=== PATIENT | female | born 1985 | race Caucasian/White ===

== ENCOUNTER 2017-05-12 23:49 | Outpatient (CLI) | payer MEDICAID, OTHER ==
[~2017-05-12] VITALS: Ht 149.9 cm; Wt 80.4 kg
[~2017-05-12 23:49] MED LIST: CALC-649; FERR27TA; PNV1TABL12
[2017-05-13 00:29] VITALS: Ht 149.9 cm; Wt 80.4 kg
--- NOTE | 2017-05-13 02:19 | RADRPT ---
PROCEDURE: ULTRASOUND BIOPHYSICAL PROFILE CLINICAL INDICATION: 31-year-old female in labor for viability. TECHNIQUE: Multiple sonographic images were obtained in order to perform a biophysical profile The images were reviewed on a PACS workstation. COMPARISON: None. FINDINGS: The cervix appears closed with a length of 4.8 cm. There is a single viable intrauterine gestation. There is a vertex presentation. Cardiac activity is present at 159 beats per minute. The placenta is fundal. The results of the biophysical profile are as follows: breathing movement = 2/2 Gross body movement = 2/2 tone = 2/2 Qualitative amniotic fluid volume = 2/2 Amniotic fluid index equals 10.4 cm. This yields a biophysical profile score of 8/8. IMPRESSION: Biophysical profile score is 8/8. .Damon Pagan MD, Date Time Electronically viewed and signed by .Damon Pagan MD, MD on 05/13/2017 02:18 .M/
--- NOTE | 2017-05-13 02:23 | RADRPT ---
PROCEDURE: ULTRASOUND OBSTETRICAL CLINICAL INDICATION: 31-year-old female in labor for size and date determination. TECHNIQUE: Multiple sonographic images of the pelvis were obtained. The images were reviewed on a PACS workstation. COMPARISON: Ultrasound biophysical profile obtained concurrently. FINDINGS: There is a single viable intrauterine gestation. Cardiac activity is present with 159 beats per min mart. There is a vertex presentation. Measurements were made in order to determine age. The res ults are as follows: BPD = 7.72 cm, HC = 29.24 cm, AC = 28.62 cm, FL = 6.37 cm. This yields and estimated gestational ag e of approximately 32 weeks 1 day. The estimated date of delivery is July 07, 2017. The EFW = 199 4 +/- 299 g (4 lb 6 oz). The GP is 52%. The placenta is fundal. There is no evidence for an abruption or placenta previa. IMPRESSION: L viable intrauterine gestation of approximately 32 weeks 1 day with vertex presentation. The estim ated date of delivery is July 07, 2017. 2. The estimated weight is 1994 +/- 299 g (4 lb 6 oz). The GP is 52%. .Damon Paagn MD, Date Time Electronically viewed and signed by .Damon Pagan MD, MD on 05/13/2017 02:22 .M/
--- NOTE | 2017-05-13 02:46 | PN ---
Triage Information Date/Time Weeks of Gestation 32+ : 6 Para: 5 Hypertention: none Results/Medications Results 24 hrs Laboratory Tests Test 05/13/17 00:36 Fibronectin NEGATIVE Assessment/Plan Ultrasound reviewed No sign of labor +FM No VB No LOF NO ctxs --->patient is discharged with precautions --->patient's questions answered ALONZO BARR M.D. May 13, 2017 02:46
--- NOTE | 2017-05-13 03:14 | TRIAGE ---
OB Triage Datetime Report Generated by CPN: 05/13/2017 03:14 Datetime: 05/13/2017 03:00 Stage of : OB Triage Datetime: 05/13/2017 02:30 Labor Evaluation Frequency: NONE Monitor Mode: External Duration (sec)2399: NONE Pattern: Normal: <= 5 Contractions in 10 Minutes Heart Rate FHR Baseline Rate: 145 Monitor Mode: External US FHR Baseline Changes: No Baseline Change Variability: Moderate 6-25 bpm Accelerations: 10X10 Datetime: 05/13/2017 01:30 Labor Evaluation Frequency: NONE Monitor Mode: External Duration (sec)2399: NONE Pattern: Normal: <= 5 Contractions in 10 Minutes Heart Rate FHR Baseline Rate: 145 Monitor Mode: External US FHR Baseline Changes: No Baseline Change Variability: Moderate 6-25 bpm Accelerations: 15X15 Datetime: 05/13/2017 00:53 Monitor Mode: Palpation Resting Tone [place]: Relaxed Datetime: 05/13/2017 00:36 Vaginal Exam Membrane Status: Intact Datetime: 05/13/2017 00:30 Labor Evaluation Frequency: NONE Monitor Mode: External Duration (sec)2399: NONE Pattern: Normal: <= 5 Contractions in 10 Minutes Heart Rate FHR Baseline Rate: 155 Monitor Mode: External US FHR Baseline Changes: No Baseline Change Variability: Moderate 6-25 bpm Accelerations: 15X15 Decelerations: None Datetime: 05/13/2017 00:10 Assessment Type: Triage Maternal Assessment Level of Consciousness: Fully Conscious Headache: Denies Blurred Vision: No Respiratory Effort: Unlabored; Regular Rhythm; Equal Expansion Nausea/Vomiting: Denies RUQ Epigastric Pain: Denies Facial Edema: None Fall Risk Assessment History of Falling: (0) No Secondary Diagnosis: (0) No Ambulatory Aid: (0) Bedrest/Nurse Assist IV Therapy: (0) No Gait: (0) Normal/Bedrest/Immobile Mental Status: (0) Oriented to Own Ability Fall Score: 0 Fall Risk Score Definition: No Risk: No action required Datetime: 05/13/2017 00:03 Temperature Route: Oral Datetime: 05/13/2017 00:01 Monitor Mode: Palpation Resting Tone [place]: Relaxed Contraction Comments: pt. states she denies having 'pain' or 'contractions' since she appeared to hospital. pt. is homeless, lives in care home. pt. states she has anxiety, pt. states she believes she over exerted herself and that she 'strained' herself, and that is where her pain came from Datetime: 05/12/2017 23:53 Time of Arrival: 05/12/2017 23:42 EGA: 32.0 Arrived By: Ambulance Arrived From: Home Chief Complaint: UC'S, SOB Movement: Present Contractions: Occasional Rupture of Membranes: Denies Vaginal Bleeding: None Vaginal Discharge: Denies Recent Sexual Intercouse: Yes Abdominal Trauma: Not Applicable Patient Complaints: Contractions Time Provider Notified: 05/13/2017 00:26 Provider Notified: CORTNEY Initial Plan: EFM, CALL OB Datetime: 05/12/2017 23:42 Stage of : OB Triage
== END 2017-05-13 02:53 | disposition home or self-care (01) ==
LOC: OBT 23:49 → L-D 23:50 → OBT 05-13 02:53
PROVIDERS: ATTEND Obstetrics & Gynecology
DX: O26.893 Other specified pregnancy related conditions, third trimester (principal); Z3A.32 32 weeks gestation of pregnancy
CPT/HCPCS: 76815; 76817; 76818; 82731; Z7500; G0463

== ENCOUNTER 2017-05-15 20:24 | Outpatient (CLI) | payer OTHER ==
[~2017-05-15] VITALS: Ht 149.9 cm; Wt 80.5 kg
[~2017-05-15 20:24] MED LIST changes: -CALC-649
[2017-05-15 21:19] VITALS: BP 128/82; PULSE 99; RESP 18; Ht 149.9 cm; Wt 80.5 kg
--- NOTE | 2017-05-15 21:25 | RADRPT ---
PROCEDURE: OB ultrasound for biophysical profile CLINICAL INDICATION: Biophysical profile. . Hypertension TECHNIQUE: Multiple sonographic images of the pelvis were obtained. Transabdominal views are obta ined. COMPARISON: 05/13/2017 FINDINGS: Single intrauterine gestation. Presentation: Cephalic. Placenta: Fundal No evidence of placental abruption. No evidence of placenta previa. breathing movement = 2/2 tone = 2/2 motion = 2/2 SILVINO = 2/2 SILVINO = 11.5 cm heart rate: 165 beats per minute IMPRESSION: Single intrauterine gestation. Biophysical profile 07/09 RPTAT: AADD .Alejandro Shrestha MD, MD Date Time Electronically viewed and signed by .Alejandro Shrestha MD, on 05/15/2017 21:25 .B/
[2017-05-15 21:33] LABS: ADD SCAN DIFF NO
[2017-05-15 21:35] LABS: BASOPHILS % 0.3 % (0.0-2.0); EOSINOPHILS # 0.1 10^3/ul (0.0-0.5); EOSINOPHILS % 0.8 % (0.0-7.0); HEMATOCRIT 35.6 % (37.0-47.0); HEMOGLOBIN 11.5 g/dl (12.0-16.0); LYMPHOCYTES % 30.7 % (15.0-51.0); MEAN CORPUSCULAR HGB CONC 32.3 g/dl (32.0-37.0); MEAN CORPUSCULAR VOLUME 86.6 fl (82.0-101.0); MEAN PLATELET VOLUME 10.3 fl (7.4-10.4); MONOCYTE # 0.6 10^3/ul (0.3-0.9); MONOCYTES % 6.7 % (0.0-11.0); NEUTROPHIL # 5.9 10^3/ul (1.6-7.5); NEUTROPHILS % 61.2 % (39.0-77.0); PLATELET COUNT 248 10^3/UL (140-415); RED BLOOD COUNT 4.11 10^6/ul (4.20-5.40); WHITE BLOOD COUNT 9.6 10^3/ul (4.8-10.8)
[2017-05-15 21:44] LABS: ADD UMIC YES; URINE BILIRUBIN (Dip) NEGATIVE (NEGATIVE); URINE BLOOD (Dip) NEGATIVE (NEGATIVE); URINE COLOR LT. YELLOW (YELLOW); URINE GLUCOSE (Dip) NEGATIVE (NEGATIVE); URINE KETONES (Dip) NEGATIVE (NEGATIVE); URINE LEUKOCYTE ESTERASE (Dip) 1+ (NEGATIVE); URINE NITRITE (Dip) POSITIVE (NEGATIVE); URINE TOTAL PROTEIN (Dip) NEGATIVE (NEGATIVE); URINE UROBILINOGEN (Dip) 0.2 E.U./dL (0.1-1.0)
[2017-05-15 21:55] LABS: BACTERIA,URINE MANY; SQUAMOUS EPITHELIAL CELL,UR FEW; URINE RBCS 0-2 /HPF (0)
[2017-05-15 22:07] LABS: ALBUMIN 3.8 g/dl (3.3-4.9); ALBUMIN/GLOBULIN RATIO 1.22; BILIRUBIN,INDIRECT 0.1 mg/dl (0-1.1); BILIRUBIN,TOTAL 0.1 mg/dl (0.2-1.3); CALCIUM 8.9 mg/dl (8.4-10.2); CREATININE 0.8 mg/dl (0.44-1.00); POTASSIUM 3.6 mmol/L (3.5-5.1); TOTAL PROTEIN 6.9 g/dl (6.1-8.1); URIC ACID 5.2 mg/dl (3.1-7.9)
--- NOTE | 2017-05-16 00:43 | PN ---
Triage Information Date/Time May 16, 2017 Weeks of Gestation 32 weeks and 3 days : 6 Para: 5 Diabetes: none Hypertention: none Additional information 31-year-old with IUP at 32 weeks and 3 days was sent from the clinic due to elevated blood pressure and noted during OB office visit. Her blood pressure in the clinic was 150s over 92. Patient denied any headache. Reports blurred vision when she change her position or bend down. Had occasional episodes of blurred vision in the last week. Currently denies any blurred vision or scotoma. Denies any epigastric pain or right upper quadrant pain. Denies any urinary symptoms. Patient denies any leaking of fluid, vaginal bleeding or decreased movement. Had a history of 5. Objective Vital Signs Date Time Temp Pulse Resp B/P Pulse Ox O2 Delivery O2 Flow Rate FiO2 05/15/17 21:19 98.2 99 18 128/82 98 Room Air Exam General appearance: Alert and oriented 4. Does not appear to be in any acute distress. Abdomen: Soft, gravid, nontender, fundal height consistent with gestational age. NST: Category 1 Extremities: No calf tenderness, no click no edema PIH labs done: Negative UA: Positive for nitrate, negative for protein. Blood pressure during observation in triage between 120s-130s over 82-90s. She currently asymptomatic. Results/Medications Result Diagram: 05/15/17210905/15/172109 Results 24 hrs Laboratory Tests Test 05/15/17 20:40 05/15/17 21:10 Urine Color LT. YELLOW Urine Clarity CLEAR Urine pH 6.5 Urine Specific [place] <=1.005 L Urine Ketones NEGATIVE Urine Nitrite POSITIVE H Urine Bilirubin NEGATIVE Urine Urobilinogen 0.2 E.U./dL Urine Leukocyte Esterase 1+ H Urine Microscopic RBC 0-2 Urine Microscopic WBC 5-10 Urine Squamous Epithelial Cells FEW Urine Bacteria MANY Urine Hemoglobin NEGATIVE Urine Glucose NEGATIVE Urine Total Protein NEGATIVE White Blood Count 9.6 Red Blood Count 4.11 L Hemoglobin 11.5 L Hematocrit 35.6 L Mean Corpuscular Volume 86.6 Mean Corpuscular Hemoglobin 28.0 L Mean Corpuscular Hemoglobin Concent 32.3 Red Cell Distribution Width 14.0 Platelet Count 248 Mean Platelet Volume 10.3 Neutrophils % 61.2 Lymphocytes % 30.7 Monocytes % 6.7 Eosinophils % 0.8 Basophils % 0.3 Nucleated Red Blood Cells % 0.0 Neutrophils # 5.9 Lymphocytes # 3.0 H Monocytes # 0.6 Eosinophils # 0.1 Basophils # 0.0 Nucleated Red Blood Cells # 0.0 Sodium Level 136 Potassium Level 3.6 Chloride Level 106 Carbon Dioxide Level 23 Anion Gap 11 Blood Urea Nitrogen 9 Creatinine 0.80 Glucose Level 101 Uric Acid 5.2 Calcium Level 8.9 Total Bilirubin 0.1 L Direct Bilirubin 0.00 Indirect Bilirubin 0.1 Aspartate Amino Transf (AST/SGOT) 27 Alanine Aminotransferase (ALT/SGPT) 34 Alkaline Phosphatase 182 H Total Protein 6.9 Albumin 3.8 Globulin 3.10 Albumin/Globulin Ratio 1.22 Imaging Results PROCEDURE: OB ultrasound for biophysical profile CLINICAL INDICATION: Biophysical profile. . Hypertension TECHNIQUE: Multiple sonographic images of the pelvis were obtained. Transabdominal views are obtained. COMPARISON: 05/13/2017 FINDINGS: Single intrauterine gestation. Presentation: Cephalic. Placenta: Fundal No evidence of placental abruption. No evidence of placenta previa. breathing movement = 2/2 tone = 2/2 motion = 2/2 SILVINO = 2/2 SILVINO = 11.5 cm heart rate: 165 beats per minute IMPRESSION: Single intrauterine gestation. Biophysical profile 07/09 Assessment/Plan IUP at 32 weeks and 3 days -induced hypertension Currently no evidence of superimposed preeclampsia Recommended to have 24 hour urine protein collection at home UA suspicious for UTI. Will treat with Augmentin for 7 days Urine culture was submitted Strict labor precaution, kick count and preeclampsia precaution was given Signs and symptoms of preeclampsia discussed Recommended to have a follow-up in the next 24-48 hours with main OB office. Plan to have NST twice a week with close monitoring of blood pressure patient verbalized understanding plan of care and agree to comply with instructions Return to triage as needed any other concern or above symptoms MARY PERRY MD May 16, 2017 00:43
== END 2017-05-15 23:10 | disposition home or self-care (01) ==
LOC: OBT 20:24 → L-D 20:25 → OBT 23:10
PROVIDERS: ATTEND Obstetrics & Gynecology
DX: O13.3 Gestational [pregnancy-induced] hypertension without significant proteinuria, third trimester (principal); Z3A.34 34 weeks gestation of pregnancy
CPT/HCPCS: 36415; 76818; 80053; 81001; 84560; 85025; G0463

== ENCOUNTER 2017-06-19 09:53 | Inpatient (IN) | payer OTHER ==
[2017-06-19] VITALS (8 sets, daily range): BP systolic 102–142; BP diastolic 51–91; PULSE 56–94; RESP 17–20; Ht 149.9 cm; Wt 81.1 kg
[~2017-06-19] VITALS: Ht 149.9 cm; Wt 81.1 kg
[~2017-06-19 09:53] MED LIST changes: +ONDANSETRON 4 MG INJ ONE
[2017-06-19] MEDS ORDERED: LABE200T25 PO (10:41)
[2017-06-19 10:53] LABS: ADD UMIC YES; UR ASCORBIC ACID NEGATIVE (NEGATIVE); UR BILIRUBIN (Dip) NEGATIVE (NEGATIVE); UR BLOOD (Dip) 3+ mg/dL (NEGATIVE); UR CLARITY SLIGHTLY CLOUDY (CLEAR); UR COLOR YELLOW (YELLOW); UR GLUCOSE (Dip) NEGATIVE (NEGATIVE); UR KETONES (Dip) NEGATIVE (NEGATIVE); UR LEUKOCYTE ESTERASE (Dip) 2+ Leu/ul (NEGATIVE); UR NITRITE (Dip) NEGATIVE (NEGATIVE); UR RBC 11 /HPF (0-5); UR SPECIFIC GRAVITY (Dip) 1.002 (1.003-1.030); UR TOTAL PROTEIN (Dip) 1+ mg/dl (NEGATIVE); UR UROBILINOGEN (Dip) NEGATIVE (NEGATIVE)
--- NOTE | 2017-06-19 11:36 | TRIAGE ---
OB Triage Datetime Report Generated by CPN: 06/19/2017 11:35 Datetime: 06/19/2017 11:08 Labor Evaluation Frequency: 2-6 Monitor Mode: External Duration (sec)2399: 60-80 Quality: Strong Pattern: Normal: <= 5 Contractions in 10 Minutes Resting Tone [place]: Relaxed Heart Rate FHR Baseline Rate: 130 Monitor Mode: External US FHR Baseline Changes: No Baseline Change Variability: Moderate 6-25 bpm Accelerations: 15X15 Decelerations: None Category: Category I Pain Assessment Pain Scale: 7 Pain Presence: Intermittent Pain Type: Contraction Pain Location: Abdomen Pain Goal: 2 Pain Relief Measures: Comfort Measures Datetime: 06/19/2017 10:39 Labor Evaluation Frequency: 1-7 Monitor Mode: External Duration (sec)2399: 40-80 Quality: Strong Pattern: Normal: <= 5 Contractions in 10 Minutes Resting Tone [place]: Relaxed Heart Rate FHR Baseline Rate: 120 Monitor Mode: External US FHR Baseline Changes: No Baseline Change Variability: Moderate 6-25 bpm Accelerations: 15X15 Decelerations: None Category: Category I Pain Assessment Pain Scale: 7 Pain Presence: Intermittent Pain Type: Contraction Pain Location: Abdomen Pain Goal: 0 Pain Relief Measures: Comfort Measures Datetime: 06/19/2017 10:26 Vaginal Exam Dilatation (cms): 0.0 Effacement (%): 50 Station: -3 Exam By: MAY Datetime: 06/19/2017 10:15 Assessment Type: Triage Maternal Assessment Level of Consciousness: Fully Conscious DTR's/Clonus: DTRs 2+; No Clonus Headache: Denies Blurred Vision: No Respiratory Effort: Unlabored; Regular Rhythm; Equal Expansion Nausea/Vomiting: Denies RUQ Epigastric Pain: Denies Lower Extremities Edema: None Degree: None Upper Extremities Edema: None Degree: None Facial Edema: None Fall Risk Assessment History of Falling: (0) No Secondary Diagnosis: (0) No Ambulatory Aid: (0) Bedrest/Nurse Assist IV Therapy: (0) No Gait: (0) Normal/Bedrest/Immobile Mental Status: (0) Oriented to Own Ability Fall Score: 0 Fall Risk Score Definition: No Risk: No action required Datetime: 06/19/2017 10:13 Time of Arrival: 06/19/2017 09:46 EGA: 37.3 Arrived By: Ambulatory Arrived From: Home Chief Complaint: POSSIBLE SROM 0330 Movement: Present Contractions: Irregular Rupture of Membranes: Ruptured Vaginal Bleeding: Normal Show Vaginal Discharge: Present Recent Sexual Intercouse: Yes Abdominal Trauma: Not Applicable Patient Complaints: Other Time Provider Notified: 06/19/2017 11:15 Provider Notified: DR. GRIER Initial Plan: EFM, ROM PLUS Datetime: 06/19/2017 10:08 Stage of : OB Triage Monitor Mode: External Monitor Mode: External US Pain Assessment Pain Scale: 7 Pain Presence: Intermittent Pain Type: Contraction Pain Location: Abdomen Pain Goal: 0 Datetime: 05/15/2017 22:00 Stage of : OB Triage Maternal Assessment Level of Consciousness: Fully Conscious Labor Evaluation Frequency: NONE Monitor Mode: External Resting Tone [place]: Relaxed Heart Rate FHR Baseline Rate: 145 Monitor Mode: External US Variability: Moderate 6-25 bpm Accelerations: 15X15 Decelerations: None Pain Assessment Pain Scale: 0 Pain Goal: 0 Membrane Status: Intact Vaginal Bleeding: None Datetime: 05/15/2017 21:17 Assessment Type: Triage Maternal Assessment Level of Consciousness: Fully Conscious DTR's/Clonus: DTRs 2+; No Clonus Headache: Denies Blurred Vision: No Respiratory Effort: Unlabored; Regular Rhythm; Equal Expansion Breath Sounds, Left: Clear and Equal Breath Sounds, Right: Clear and Equal Nausea/Vomiting: Denies RUQ Epigastric Pain: Denies Lower Extremities Edema: Bilateral Lower Extremities Degree: 1+ Upper Extremities Edema: None Degree: None Facial Edema: None Fall Risk Assessment History of Falling: (0) No Secondary Diagnosis: (0) No Ambulatory Aid: (0) Bedrest/Nurse Assist IV Therapy: (0) No Gait: (0) Normal/Bedrest/Immobile Mental Status: (0) Oriented to Own Ability Fall Score: 0 Fall Risk Score Definition: No Risk: No action required Datetime: 05/15/2017 21:07 Monitor Mode: External Monitor Mode: External US Datetime: 05/15/2017 20:44 Time of Arrival: 05/15/2017 20:20 EGA: 32.3 Arrived By: Ambulatory Arrived From: Office Chief Complaint: PT SENT FOR EVAL. OF PIH Movement: Present Contractions: Denies/Absent Rupture of Membranes: Denies Vaginal Bleeding: None Vaginal Discharge: Denies Recent Sexual Intercouse: Denies Abdominal Trauma: Not Applicable Patient Complaints: None Provider Notified: grupo Initial Plan: NST/BPP/CBC, CMP, UA, URIC ACID Datetime: 05/13/2017 00:10 Fall Score: 0 Fall Risk Score Definition: No Risk: No action required Datetime: 05/12/2017 23:53 EGA: 32.0
[2017-06-19 12:19] LABS: ADD SCAN DIFF NO
[2017-06-19] MEDS ORDERED: CEFAZOLIN 2 GM/50 ML (PMX) 50 ML IVPB ONE (12:21)
[2017-06-19 12:23] LABS: BASOPHILS % 0.3 % (0.0-2.0); EOSINOPHILS % 0.4 % (0.0-7.0); HEMATOCRIT 39.5 % (37.0-47.0); HEMOGLOBIN 12.9 g/dl (12.0-16.0); LYMPHOCYTES # 2.8 10^3/ul (0.8-2.9); LYMPHOCYTES % 27.3 % (15.0-51.0); MEAN CORPUSCULAR HEMOGLOBIN 28.2 pg (29.0-33.0); MEAN CORPUSCULAR HGB CONC 32.7 g/dl (32.0-37.0); MEAN CORPUSCULAR VOLUME 86.2 fl (82.0-101.0); MONOCYTE # 0.8 10^3/ul (0.3-0.9); MONOCYTES % 7.8 % (0.0-11.0); NEUTROPHIL # 6.5 10^3/ul (1.6-7.5); NEUTROPHILS % 63.6 % (39.0-77.0); PLATELET COUNT 237 10^3/UL (140-415); RED BLOOD COUNT 4.58 10^6/ul (4.20-5.40); RED CELL DISTRIBUTION WIDTH 14.6 % (11.5-14.5); WHITE BLOOD COUNT 10.2 10^3/ul (4.8-10.8)
[2017-06-19] MEDS: LACTATED RINGER'S 1,000 ML IV SCH ×3 (12:26→17:47)
[2017-06-19 12:29] LABS: ALBUMIN 3.5 g/dl (3.3-4.9); ALBUMIN/GLOBULIN RATIO 0.89; BILIRUBIN,INDIRECT 0.1 mg/dl (0-1.1); BILIRUBIN,TOTAL 0.1 mg/dl (0.2-1.3); CALCIUM 9.7 mg/dl (8.4-10.2); CREATININE 0.65 mg/dl (0.44-1.00); POTASSIUM 4.3 mmol/L (3.5-5.1); TOTAL PROTEIN 7.4 g/dl (6.1-8.1)
[2017-06-19] MEDS ORDERED: OXYTOCIN 30 UNITS/LR 500 ML IV PRN ×2 (12:30→18:00)
[2017-06-19] MEDS ORDERED: METHYLERGONOVINE 0.2 MG INJ IM PRN ×2 (12:30→18:00)
[2017-06-19] MEDS ORDERED: MISOPROSTOL 200 MCG TAB PR PRN ×2 (12:30→18:00)
[2017-06-19] MEDS ORDERED: CEFAZOLIN 2 GM/50 ML (PMX) 50 ML IV SCH (12:30)
[2017-06-19] MEDS ORDERED: CARBOPROST 250 MCG INJ IM PRN ×2 (12:30→18:00)
[2017-06-19] MEDS ORDERED: OXYTOCIN 30 UNITS/LR 500 ML IV SCH (12:30)
[2017-06-19 13:02] LABS: INR 0.83; PROTIME 11.4 Sec (12.2-14.2); PT RATIO 0.9
[2017-06-19 13:03] LABS: PARTIAL THROMBOPLASTIN TIME 26.9 Sec (25.0-35.0)
[2017-06-19] MEDS ORDERED: ONDANSETRON 4 MG INJ IV STA (13:05)
[2017-06-19] MEDS ORDERED: FAMOTIDINE 20 MG INJ IV ONE (13:30)
[2017-06-19] MEDS ORDERED: morphine SULFATE/PF (10 MG/10 ML) INJ ONE (14:12)
[2017-06-19] MEDS ORDERED: METOCLOPRAMIDE 10 MG INJ ONE (14:36)
[2017-06-19] MEDS ORDERED: DEXAMETHASONE 4 MG/ML 1 ML INJ ONE (14:36)
--- NOTE | 2017-06-19 14:42 | HP ---
Date/Time of Note Date/Time of Note DATE: 06/19/17 TIME: 14:36 OB - History Hx of Present Free Text/Dictation Admitted because of SROM at 0600 AM 06/19 at 37+ weeks Chief Complaint: SROM Last Menstrual Period: Sep 30, 2016 Estimated Due Date: Jun 06, 2017 : 6 Para: 5 Care: Good Care Ultrasounds: Normal mid trimester US Obstetrical Complications: Gestational Hypertension Medical Complications: Other (HTN) Past Family/Social History * Past Medical, Surgical, Family and Obstetric Histories reviewed from chart. Blood Type: O+ Rubella: immune RPR/VDRL: Negative GBS Status: Unknown HBsAG: Negative OB Admission Exam Vital Signs Vital Signs Vital Signs Date Time Temp Pulse Resp B/P Pulse Ox O2 Delivery O2 Flow Rate FiO2 06/19/17 10:12 98.0 75 20 142/91 Room Air Physical Exam HEENT: WNL Heart: Rhythm Normal Lungs: Clear, Equal Abdomen: WNL Extremities: Normal Reflexes: Normal Cervical Dilatation: None Effacement: 0% Station: -3 Membranes: Ruptured Heart Rate: 140's Accelerations: Accelerations Present Decelerations: No Decelerations Contractions on Admission: < 5 Minutes Apart Date/Time Contractions Began: 06/19/2017 0600 Frequency of Contractions: q3-4 Duration: >45 seconds Intensity: Mild Last 72 hours Lab Results CBC & BMP 06/19/17 11:40 Liver Function Test 06/19/17 11:40 Alanine Aminotransferase (ALT/SGPT) 33 Albumin 3.5 Alkaline Phosphatase 228 H Aspartate Amino Transf (AST/SGOT) 32 Direct Bilirubin 0.00 Total Protein 7.4 OB Assessment/Plan Reason for admission: section Other Assessment: 37 + weeks gestation previous C/S X 5 desires sterilization Other plan: repeat C/S + BTL PEARL GUZMAN MD Jun 19, 2017 14:42
[2017-06-19] MEDS ORDERED: OXYTOCIN 30 UNITS/LR 500 ML IV ONE (14:43)
[2017-06-19] MEDS ORDERED: OXYTOCIN 10 UNIT INJ ONE (14:47)
[2017-06-19] MEDS ORDERED: PHENYLephrine (100 MCG/ML) 5ML SYG ONE (14:51)
[2017-06-19] MEDS ORDERED: MIDAZOLAM 1 MG/ML 2 ML INJ ONE (14:57)
--- NOTE | 2017-06-19 15:40 | OPR ---
Operative Report Planned Procedure Procedure date Jun 19, 2017 Procedure(s) Repeat and bilateral tubal ligation Performed by: PEARL GUZMAN MD Assisting provider: SHRADDHA CAMPOS MD Anesthesiologist: OSMAR MEJIA MD Pre-procedure diagnosis 37+ weeks just Previous times Liver pain Spontaneous rupture of membranes Desires sterilization Anesthesia Type: spinal Procedure Description Under satisfactory anaesthesia a Pfannenstiel incision was made two fingerbreadth above and parallel to the symphysis of pubis around the previous scar and previous scar was removed Incision was extended laterally to the border of the Recti muscles on either sides. Incision was carried down with sharp and blunt dissection until fascia was reached. Anterior Recti muscle fascia was incised in mid portion and incision extended laterally to the border of skin incision. Fascia was mobilized from muscle superiorly and Recti muscles were from midline using sharp and blunt dissection. Peritoneum was visualized; Avoiding bowel and bladder it was incised . Incision was extended superiorly and inferiorly. Bladder blade was placed. Posterior peritoneum covering the lower segment of the uterus and lower segment of the uterus were incised.Low transverse uterine incision was made on lower segment of the uterus. Incision extended laterally to the border of Round Lig. on either sides and baby was delivered from OT. position . Amniotic fluid appeared clear. Cord blood was obtained and cord had 3 vessels . Placenta was delivered spontaneously and appeared intact and complete. Intrauterine cavity was rubbed with a laparotomy sponge. Uterine incision was closed in 2 layers using running stitches of No1 Monocryl. Hemostasis appeared secure. Ovaries and Fallopian tubes were within normal limits. Bilateral Tubal Ligation was performed by following procedure: R fallopian tube was raised in mid portion; a Marlene clamp was placed below the fimbriae extending to proximal portion of the fallopian tube. Another clamp was placed parallel to the first and after incising the fallopian tube the stump was sutured using 0 Vicryl stitch. Hemostasis was secure . Same procedure was done on fallopian tube on the opposite side. Hemostasis appeared to be secure on ligated sites of either fallopian tubes. Announcing needle, lap sponge and instrument count to be correct abdomen was closed in layers as follows: Peritoneum and Recti muscles with running stitches of 20 Vicryl. Fascia with running stitch of No 1 PDS. Subcutaneous tissue with running stitches of 20 Chromic and skin was closed using elmer. Patient tolerated the procedure well and was transferred to [facility] in good condition. Post-Procedure Post-procedure diagnosis Status post repeat and tubal ligation Findings: Live Baby Specimen removed: Yes Specimen description Segments of right and left fallopian tubes Complications: None Pt Condition post procedure: stable Disposition: PACU Physician Certification I, the undersigned physician, hereby certify that I have discussed the procedure described in this consent form with this patient (or the patient's legal outside sales representative insurance), including: * The risk and benefits of the procedure; * Any adverse reactions that may reasonably be expected to occur; * Any alternative efficacious methods of treatment which may be medically viable ; * The potential problems that may occur during recuperation; * Potential for blood transfusion and associated risks/benefits; and * Any research or economic interest I may have regarding this treatment. I further certify that the patient/legally responsible person was encouraged to ask question and that all questions were answered. PEARL GUZMAN MD Jun 19, 2017 15:39
[2017-06-19] MEDS ORDERED: PROCHLORPERAZINE 10 MG INJ IV PRN ×2 (16:00→17:30)
[2017-06-19] MEDS ORDERED: HYDROmorphONE 1 MG/ML SYG IV PRN (16:00)
[2017-06-19] MEDS ORDERED: NALOXONE (0.4 MG/ML) INJ IV PRN (16:00)
[2017-06-19] MEDS ORDERED: ONDANSETRON 4 MG INJ IV PRN ×2 (16:00→17:30)
[2017-06-19] MEDS: DIPHENHYDRAMINE 50 MG INJ IV PRN (17:05)
[2017-06-19] MEDS: KETOROLAC 30 MG INJ IV PRN ×2 (17:05→23:21)
[2017-06-19] MEDS ORDERED: HYDROmorphONE (0.2 MG/ML) 10ML SYG IV PRN (17:30)
[2017-06-19] MEDS ORDERED: KETOROLAC 30 MG INJ IV ONE (17:30)
[2017-06-19] MEDS ORDERED: LANOLIN 7 GM TUBE TOP PRN (18:00)
[2017-06-19] MEDS ORDERED: NA PHOSPHATE/BIPHOS 133 ML ENEMA PR PRN (18:00)
[2017-06-19] MEDS: CLINDAMYCIN 300 MG CAP PO SCH ×2 (18:00→23:22)
[2017-06-19] MEDS: SENNA/DOCUSATE NA (8.6MG/50MG) TAB PO SCH (21:00)
[2017-06-19] MEDS: CEFAZOLIN 2 GM/50 ML (PMX) 50 ML IVPB SCH (21:48)
[2017-06-19] MEDS: LABETALOL 200 MG TAB PO SCH (21:50)
[2017-06-20] MEDS: LACTATED RINGER'S 1,000 ML IV SCH ×3 (00:17→17:47)
[2017-06-20] MEDS: CLINDAMYCIN 300 MG CAP PO SCH ×4 (05:34→23:23)
[2017-06-20] MEDS: CEFAZOLIN 2 GM/50 ML (PMX) 50 ML IVPB SCH ×2 (05:35→12:22)
[2017-06-20 05:44] VITALS: BP 97/58; PULSE 66; RESP 18
[2017-06-20 08:29] LABS: ADD SCAN DIFF NO
[2017-06-20] MEDS: SENNA/DOCUSATE NA (8.6MG/50MG) TAB PO SCH ×2 (08:37→21:32)
[2017-06-20 08:38] LABS: BASOPHILS % 0.3 % (0.0-2.0); EOSINOPHILS # 0.1 10^3/ul (0.0-0.5); EOSINOPHILS % 0.8 % (0.0-7.0); HEMATOCRIT 34.8 % (37.0-47.0); LYMPHOCYTES # 1.6 10^3/ul (0.8-2.9); LYMPHOCYTES % 14.8 % (15.0-51.0); MEAN CORPUSCULAR HEMOGLOBIN 27.7 pg (29.0-33.0); MEAN CORPUSCULAR HGB CONC 31.6 g/dl (32.0-37.0); MEAN CORPUSCULAR VOLUME 87.7 fl (82.0-101.0); MEAN PLATELET VOLUME 10.7 fl (7.4-10.4); MONOCYTE # 0.7 10^3/ul (0.3-0.9); MONOCYTES % 6.4 % (0.0-11.0); NEUTROPHIL # 8.2 10^3/ul (1.6-7.5); NEUTROPHILS % 77.2 % (39.0-77.0); PLATELET COUNT 184 10^3/UL (140-415); RED BLOOD COUNT 3.97 10^6/ul (4.20-5.40); RED CELL DISTRIBUTION WIDTH 14.4 % (11.5-14.5); WHITE BLOOD COUNT 10.7 10^3/ul (4.8-10.8)
[2017-06-20] MEDS: LABETALOL 200 MG TAB PO SCH ×2 (09:00→21:34)
[2017-06-20 09:06] VITALS: BP 118/55; PULSE 66; RESP 16
[2017-06-20] MEDS ORDERED: BISACODYL 10 MG SUPP PR ONE (10:00)
[2017-06-20] MEDS: DIPHENHYDRAMINE 50 MG INJ IV PRN (10:36)
[2017-06-20] MEDS: KETOROLAC 30 MG INJ IV PRN (10:39)
[2017-06-20] MEDS ORDERED: ACETAMINOPHEN/CODEINE #3 TAB PO PRN (13:45)
[2017-06-20] MEDS: IBUPROFEN 800 MG TAB PO SCH ×2 (13:54→21:19)
--- NOTE | 2017-06-20 14:48 | PN ---
Date/Time of Note Date/Time of Note DATE: 06/20/17 TIME: 14:46 Assessment/Plan VTE Prophylaxis VTE Prophylaxis Intervention: ambulation Lines/Catheters IV Catheter Type (from Nrsg): Saline Lock Assessment/Plan Assessment/Plan Status post and tubal ligation postop day 1 We will advance diet Ambulate Labetalol was held because of low blood pressure Subjective 24 Hr Interval Summary Passing flatus No bowel movement Constitutional: BM, ambulates, flatus, improved, no complaints, urine output Pain Control: well controlled Exam/Review of Systems Vital Signs Vitals Vital Signs Date Time Temp Pulse Resp B/P Pulse Ox O2 Delivery O2 Flow Rate FiO2 06/20/17 09:06 98.0 66 16 118/55 Room Air 06/20/17 04:12 97 21 Intake and Output 06/19/17 06/19/17 06/20/17 15:00 23:00 07:00 Intake Total 550 ml Output Total 400 ml 700 ml 400 ml Balance -400 ml -150 ml -400 ml Exam Free Text/Dictation Abdomen is soft Incision covered Constitutional: alert, oriented, well developed Psych: nl mood/affect, no complaints Head: atraumatic, normocephalic Eyes: EOMI, nl conjunctiva, nl lids, nl sclera ENMT: mucosa pink and moist, nl external ears & nose, nl lips & teeth, nl nasal mucosa & septum Neck: non-tender, supple Respiratory: clear to auscultation, normal air movement Cardiovascular: nl pulses, regular rate and rhythm Gastrointestinal: nl liver, spleen, non-tender, soft Musculoskeletal: nl extremities to inspection, nl gait and stance Extremities: normal pulses Neurological: WINDOW CUTTER II-XII intact, nl mental status, nl speech, nl strength Skin: nl turgor, rash or lesions Lymph: nl lymph nodes Results Result Diagram: 06/20/17 0816 06/19/17 1140 PEARL GUZMAN MD Jun 20, 2017 14:47
[2017-06-20 15:28] VITALS: BP 117/63; PULSE 79; RESP 20
[2017-06-20 17:00] VITALS: BP 127/66; RESP 16
[2017-06-20 17:29] LABS: BARBITURATES Negative (NEGATIVE); BENZODIAZEPINES Negative (NEGATIVE); CANNABINOIDS Negative (NEGATIVE); COCAINE Negative (NEGATIVE); OPIATES Negative (NEGATIVE)
[2017-06-20] MEDS: OXYCODONE/ACETAMINOPHEN (5/325) TAB PO PRN (19:49)
[2017-06-20 21:33] VITALS: BP 142/81; PULSE 86; RESP 20
[2017-06-21 00:20] VITALS: BP 124/72; PULSE 76; RESP 18
[2017-06-21 04:00] VITALS: BP 129/79; PULSE 80; RESP 17
[2017-06-21] MEDS: CLINDAMYCIN 300 MG CAP PO SCH ×3 (05:17→18:17)
[2017-06-21] MEDS: IBUPROFEN 800 MG TAB PO SCH ×3 (05:17→21:47)
[2017-06-21] MEDS: OXYCODONE/ACETAMINOPHEN (5/325) TAB PO PRN ×2 (06:47→16:12)
[2017-06-21 08:45] VITALS: BP 140/77; PULSE 69; RESP 18
[2017-06-21] MEDS: SENNA/DOCUSATE NA (8.6MG/50MG) TAB PO SCH ×2 (09:00→20:56)
[2017-06-21] MEDS: LABETALOL 200 MG TAB PO SCH ×2 (09:53→20:56)
[2017-06-21 12:00] VITALS: BP 123/76; PULSE 74; RESP 18
[2017-06-21 16:00] VITALS: BP_SYST 112; BP_SYST 145; BP_DIAS 68; BP_DIAS 75; PULSE 65; PULSE 79; RESP 18; RESP 48
--- NOTE | 2017-06-21 18:04 | DS ---
Date/Time of Note Date/Time of Note Home next day DATE: 06/21/17 TIME: 18:03 Obstetrical Discharge Record Final Diagnosis Final Diagnosis: Term delivered Other Final Diagnosis Status post and tubal ligation Vaginal Delivery Obstetrical Delivery: Bilateral Tubal Ligation Section Section: Repeat Condition on Discharge Physical Assessment Last Vitals: See nurse's note Voiding: Yes Bowel Movement: Yes Breast: Soft, non-tender, Filling Fundus: Firm Abdomen and Incision: Soft and bowel sounds positive Incision is healing well Episiotomy: Not at Calf Tenderness: No Patient Condition: Good PEARL GUZMAN MD Jun 21, 2017 18:04
--- NOTE | 2017-06-21 18:06 | DS ---
Date/Time of Note Date/Time of Note DATE: 06/21/17 TIME: 18:04 Discharge Summary Admission/Discharge Info Admit Date/Time Jun 19, 2017 at 11:20 Discharge Date/Time June 22, 2017 Discharge Diagnosis Status post and tubal ligation Patient Condition: Good Procedures Repeat and tubal ligation Hx of Present Illness 32-year-old female underwent sixth at 37+ weeks gestation and bilateral tubal ligation as well Hospital Course Uncomplicated Home Meds Reported Medications Labetalol Hcl* (Labetalol Hcl*) 200 Mg Tablet, 200 MG PO BID, TAB 06/19/17 Ferrous Sulfate (Iron) 1 Tab Tablet 03/24/11 Pnv Cmb#21/Iron/Folic Acid ( Complete [place]) 1 Tab Tablet 03/24/11 Follow-up Plan 2 3 days in clinic for staple removal Primary Care Provider Not On Staff Doctor PEARL GUZMAN MD Jun 21, 2017 18:06
--- NOTE | 2017-06-21 18:07 | PD.PPDC ---
STOCK CONTROL SUPERVISOR Discharge Instruction Provider Information Physician Information 32-year-old female underwent repeat section and bilateral tubal ligation Diagnosis Final Diagnosis: Status post and BTL Condition Patient Condition: Good Diet Diet: Resume Regular Diet Activity/Restrictions Activity: April Shower Restrictions: No Exercising No Lifting Nothing in the Vagina Return to Work or School: Aug 26, 2017 Wound/Drain Care Instructions Wound/Drain Care Instructions: Keep clean and dry Follow-up Follow-up with Physician: 2, 3, 4, Day/Days (In clinic for staple removal) Return to clinic for WAREHOUSE ATTENDANT Instructions: Fever greater than 101 Chills OB Instructions: Breast Tenderness Depression Surgical Instructions: Incisional Drainage Incisional Redness PEARL GUZMAN MD Jun 21, 2017 18:07
[2017-06-21] MEDS ORDERED: IBUP800T25 PO (18:08)
[2017-06-21] MEDS ORDERED: Oxycodone/Acetamin (5/325) PO (18:08)
[2017-06-21 19:45] VITALS: BP 146/75; PULSE 84; RESP 20
[2017-06-22] VITALS: BP 100/57; PULSE 65; RESP 18
[2017-06-22] MEDS: CLINDAMYCIN 300 MG CAP PO SCH ×3 (00:28→12:01)
[2017-06-22] MEDS: OXYCODONE/ACETAMINOPHEN (5/325) TAB PO PRN ×2 (01:03→08:07)
[2017-06-22 04:00] VITALS: BP 114/66; PULSE 69; RESP 18
[2017-06-22] MEDS: IBUPROFEN 800 MG TAB PO SCH ×2 (05:49→13:06)
[2017-06-22 07:50] VITALS: BP 161/88; PULSE 63; RESP 18
[2017-06-22] MEDS: SENNA/DOCUSATE NA (8.6MG/50MG) TAB PO SCH (08:07)
[2017-06-22] MEDS: LABETALOL 200 MG TAB PO SCH (08:07)
[2017-06-22] MEDS ORDERED: DIPHTH/TET/ACEL PERTUSS (ADULT) 0.5 ML VIAL IM* ONE (09:00)
[2017-06-22] MEDS ORDERED: MEASLES,MUMPS,RUBELLA VACCINE INJ SC* ONE (09:00)
== END 2017-06-22 14:41 | disposition home or self-care (01) | DRG 765 ==
LOC: OBT 09:53 → L-D 09:54 → OBT 11:18 → L-D 11:20 → PP1 18:27
PROVIDERS: ADMIT Obstetrics & Gynecology; ATTEND Obstetrics & Gynecology
PROC: 0UL70ZZ Occlusion of Bilateral Fallopian Tubes, Open Approach (ICD-10-PCS; 2017-06-19)
PROC: 10D00Z1 Extraction of Products of Conception, Low, Open Approach (ICD-10-PCS; principal; 2017-06-19 12:30)
DX: O34.211 Maternal care for low transverse scar from previous cesarean delivery (principal); O13.3 Gestational [pregnancy-induced] hypertension without significant proteinuria, third trimester; O24.419 Gestational diabetes mellitus in pregnancy, unspecified control; Z30.2 Encounter for sterilization; Z3A.37 37 weeks gestation of pregnancy; Z37.0 Single live birth
CPT/HCPCS: 80053; 80307; 81001; 84112; 84560; 85025; 85610; 85730; 86592; 86850; 86900; 86901; 86920; 87340; 88302; 90715; 94760; 99464; G0463; J0690; J1100; J1200; J1644; J1885; J2250; J2274; J2370; J2405; J2590; J2765; J7120

== ENCOUNTER 2017-07-23 00:10 | Emergency (ER) | payer OTHER ==
[~2017-07-23] VITALS: Ht 149.9 cm; Wt 71.5 kg
[~2017-07-23 00:10] MED LIST changes: +IBUP800T25 PO; -ONDANSETRON 4 MG INJ ONE; +Oxycodone/Acetamin (5/325) PO
[2017-07-23 00:13] VITALS: Ht 149.9 cm; Wt 71.5 kg
[2017-07-23] MEDS ORDERED: HYDROCODONE/APAP (5/325) TAB PO ONE (01:00)
--- NOTE | 2017-07-23 01:56 | RADRPT ---
PROCEDURE: XR hand. CLINICAL INDICATION: Trauma TECHNIQUE: AP, lateral and oblique views of the right hand was obtained. COMPARISON: There are no similar studies submitted for comparison. FINDINGS: There is an oblique, slightly comminuted nondisplaced fracture within the third metacarpal diaphysi s. No osseous erosions are identified. The joint spaces are within normal limits. Overlying soft tis mansoor swelling is noted. IMPRESSION: Third metacarpal fracture. RPTAT: HIKT .New Nicholas MD, Date Time Electronically viewed and signed by .New Nicholas MD, on 07/23/2017 01:56 .T/
--- NOTE | 2017-07-23 01:57 | RADRPT ---
PROCEDURE: XR forearm. CLINICAL INDICATION: Trauma TECHNIQUE: AP and lateral views of the left forearm were performed. COMPARISON: There are no similar studies submitted for comparison. FINDINGS: There is normal bone mineralization.There is no acute fracture or dislocation.No osseous lesion is i dentified. IMPRESSION: No acute fracture or dislocation. RPTAT: HIKT .New Nihcolas MD, MD Date Time Electronically viewed and signed by .New Nicholas MD, MD on 07/23/2017 01:56 .T/
--- NOTE | 2017-07-23 02:00 | ERD ---
ER Documentation Chief Complaint Date/Time DATE: 07/23/17 TIME: 02:00 Chief Complaint LEFT WRIST/HAND PAIN/SWELLING FROM ACCIDENTALLY HITTING SOMETHING HPI This is a 32-year-old female presents the emergency department today complaining of left hand and arm pain after "hitting something" earlier this evening. Patient states that she was wrestling with her friend when she fell back and hit her hand against something. States that she put it in a bowl of ice but did not take any medication for the pain. Denies any previous trauma. ROS All systems reviewed and are negative except as per history of present illness. Medications Home Meds Active Scripts Acetaminophen* (Tylophen*) 500 Mg Capsule, 1 CAP PO Q6H Y for PAIN AND OR ELEVATED TEMP, #30 CAP Prov:LEE DUQUE PA-C 07/23/17 Naproxen* (Naprosyn*) 500 Mg Tablet, 500 MG PO BID Y for PAIN AND/OR INFLAMMATION, #30 TAB Prov:LEE DUQUE PA-C 07/23/17 Hydrocodone/Acetaminophen ([place] 5-325 Tablet) 1 Each Tablet, 1 TAB PO Q6H Y for PAIN, #12 TAB Prov:LEE DUQUE PA-C 07/23/17 [Oxycodone/Acetamin (5/325)] 1 TAB TAB No Conflict Check, 1 TAB PO Q4H Y for PAIN LEVEL 6-10, #20 0 Refills Prov:PEARL GUZMAN MD 06/21/17 Ibuprofen* (Ibuprofen*) 800 Mg Tablet, 800 MG PO Q8, #30 TAB 0 Refills Prov:PEARL GUZMAN MD 06/21/17 Reported Medications Ferrous Sulfate (Iron) 1 Tab Tablet 03/24/11 Pnv Cmb#21/Iron/Folic Acid ( Complete Caplet) 1 Tab Tablet 03/24/11 Allergies Allergies: Coded Allergies: No Known Drug Allergy (Verified Allergy, Unknown, 07/23/17) PMhx/Soc History of Surgery: Yes (c-sec x 6) Anesthesia Reaction: No Hx Neurological Disorder: No Hx Respiratory Disorders: No Hx Cardiac Disorders: Yes (HTN) Hx Psychiatric Problems: No Hx Miscellaneous Medical Probl: No Hx Alcohol Use: No Hx Substance Use: No Hx Tobacco Use: No Smoking Status: Never smoker Physical Exam Vitals Vital Signs Date Time Temp Pulse Resp B/P Pulse Ox O2 Delivery O2 Flow Rate FiO2 07/23/17 00:13 97.0 83 20 136/87 9 Physical Exam Const: No acute distress Head: Atraumatic Eyes: Normal Conjunctiva ENT: Normal External Ears, Nose and Mouth. Neck: Full range of motion..~ No meningismus. Resp: Clear to auscultation bilaterally Cardio: Regular rate and rhythm, no murmurs Skin: No petechiae or rashes MSK: Left hand with no obvious deformity. Moderate effusion over dorsal aspect. No ecchymosis. Diffusely tender to palpation dorsal aspect. Pain with range of motion at wrist. Nontender scaphoid. Tenderness palpation forearm. Full active range of motion elbow. Pulses 2+ per distal neurovascularly intact Neur: Awake and alert Psych: Normal Mood and Affect Results 24 hrs Current Medications Medications (Trade) Dose Ordered Sig/Raffi Route PRN Reason Start Time Stop Time Status Last Admin Dose Admin Acetaminophen/ Hydrocodone Bitart ([place] (5/325)) 1 tab ONCE ONCE PO 07/23/17 01:00 07/23/17 01:01 DC 07/23/17 01:14 DIAGNOSTIC IMAGING REPORT Patient: OSMIN BAL : 1985 Age: 32 Sex: F MR #: [id number] DOS: 07/23/17 0000 Ordering MD: LEE DUQUE PA-C Location: [facility] Room/Bed: PROCEDURE: XR forearm. CLINICAL INDICATION: Trauma TECHNIQUE: AP and lateral views of the left forearm were performed. COMPARISON: There are no similar studies submitted for comparison. FINDINGS: There is normal bone mineralization.There is no acute fracture or dislocation.No osseous lesion is identified. IMPRESSION: No acute fracture or dislocation. RPTAT: HIKT .New Nicholas MD, Date Time Electronically viewed and signed by .New Nicholas MD, on 07/23/2017 01:56 .T/ CC: LEE DUQUE PA-C DIAGNOSTIC IMAGING REPORT Patient: OSMIN BAL : 1985 Age: 32 Sex: F MR #: [id number] DOS: 07/23/17 0000 Ordering MD: LEE DUQUE PA-C Location: [facility] Room/Bed: PROCEDURE: XR hand. CLINICAL INDICATION: Trauma TECHNIQUE: AP, lateral and oblique views of the right hand was obtained. COMPARISON: There are no similar studies submitted for comparison. FINDINGS: There is an oblique, slightly comminuted nondisplaced fracture within the third metacarpal diaphysis. No osseous erosions are identified. The joint spaces are within normal limits. Overlying soft tissue swelling is noted. IMPRESSION: Third metacarpal fracture. RPTAT: HIKT .New Nicholas MD MD Date Time Electronically viewed and signed by .New Nicholas MD, MD on 07/23/2017 01:56 .T/ CC: LEE DUQUE PA-C Procedures/MDM This is a 32-year-old female who presents to the emergency department today complaining of left hand and forearm pain after "hitting something". On physical exam patient had pain on her forearm as well as diffusely over her hand. Patient also had a significant amount of swelling in her hand and therefore did obtain images. Per the radiology report images of the left forearm show no acute fracture dislocation. Per the radiology report images of the left hand show a third metacarpal fracture. There is an oblique slightly comminuted nondisplaced fracture within the third metacarpal diaphysis. The joint spaces are within normal limits. There is overlying soft tissue swelling. This is likely the source of the patient's pain and swelling. Patient was given We[place] here in the emergency department. I will give her a short course of [place] and Naprosyn and Tylenol for home. She was placed in a splint. She was distal neurovascularly intact pre-and post splint application. Patient was also given a sling to wear for comfort. I have instructed her to follow the primary care doctor for referral to information systems security specialist. Have given her a list of referrals including [facility]win. At this time the patient is stable for discharge and outpatient management. Patient should follow up with their PCP in the next 1-2 days. They may return to the emergency department sooner for any persistent or worsening of symptoms. Patient understood and agreed with the plan. Departure Diagnosis: Primary Impression: Hand fracture, left Encounter type: initial encounter Fracture type: closed Qualified Code: S62.92XA - Hand fracture, left, closed, initial encounter Condition: Fair LEE DUQUE PA-C Jul 23, 2017 02:00
[2017-07-23] MEDS ORDERED: NAPR-260 PO (02:08)
[2017-07-23] MEDS ORDERED: HYDR-906 PO (02:08)
[2017-07-23] MEDS ORDERED: ACET500C5 PO (02:09)
== END 2017-07-23 02:27 | disposition home or self-care (01) ==
LOC: FTE 00:10
DX: S62.302A Unspecified fracture of third metacarpal bone, right hand, initial encounter for closed fracture (principal); I10 Essential (primary) hypertension; W22.8XXA Striking against or struck by other objects, initial encounter; Y92.9 Unspecified place or not applicable
CPT/HCPCS: 29125; 73090; 73130; Z7502; Z7610